=== PATIENT | male | born 2005 | race Caucasian/White ===

== ENCOUNTER 2025-06-26 22:07 | Emergency (ER) | payer SELFPAY ==
[~2025-06-26] VITALS: Ht 175.3 cm; Wt 104.3 kg
[2025-06-26] MEDS ORDERED: Ondansetron Hydrochloride 4 MG/2 ML VIAL IV ONE (22:30)
[2025-06-26] MEDS ORDERED: SODIUM CHLORIDE 0.9% 1,000 ML IV ONE (22:30)
[2025-06-26 22:53] LABS: BASO # 0.0 10*3/uL (0.0-0.1); BASO % 0.3 % (0.0-1.0); EOS # 0.2 10*3/uL (0.0-0.4); EOS % 2.2 % (1.0-4.0); MEAN CELL VOLUME 85.0 fl (80.0-94.0); MEAN CORPUSCULAR HGB 29.4 pg (27.0-31.0); MEAN PLATELET VOLUME 9.8 fl (9.6-12.3); MONO # 0.5 10*3/uL (0.1-1.0); MONO % 5.4 % (3.0-9.0); NEUT # 5.9 10*3/uL (2.3-7.9); NEUT % 66.5 % (47.0-73.0); NUCLEATED RED BLOOD CELL 0.0 % (0.0-0.0); NUCLEATED RED BLOOD CELL 0.0 10*3/uL (0.0-0.0); PLATELET COUNT AUTOMATED 221 10*3/uL (130-400); RED CELL DISTRI WIDTH 12.1 % (0-14.5)
[2025-06-26 23:12] LABS: BUN 13 mg/dl (9-23)
[2025-06-26] MEDS ORDERED: Ondansetron4 MG PO (23:19)
[2025-06-26] MEDS ORDERED: VIBRAMYCIN100 MG PO (23:19)
== END 2025-06-26 23:38 | disposition home or self-care (01) ==
LOC: ED 22:07
PROVIDERS: Nurse Practitioner Family
DX: B34.9 Viral infection, unspecified (principal); L02.411 Cutaneous abscess of right axilla